=== PATIENT | male | born 1965 | race Caucasian/White ===

== ENCOUNTER 2021-06-14 09:11 | Outpatient (REF) | payer OTHER, SELFPAY | END 2021-06-14 09:12 | disposition home or self-care (01) | LOC: HO.WFDLDS 09:11 | PROVIDERS: PCP Internal Medicine; Visit Provider Internal Medicine | DX: Z20.822 Contact with and (suspected) exposure to COVID-19 (principal) | CPT/HCPCS: C9803; U0003; U0005 ==